=== PATIENT | male | born 1950 | race Caucasian/White ===

== ENCOUNTER 2016-07-28 10:51 | Inpatient (IN) | payer MEDICARE, OTHER ==
[~2016-07-28] VITALS: Ht 175.3 cm; Wt 77.6 kg
[~2016-07-28 10:51] MED LIST: ALTACE 5MG5 MG PO; ASPIRIN E.C. 8181 MG PO; ASPIRIN E.C.325 MG PO; CLOPIDOGREL PO; COREG 25MG25 MG/TAB PO; HARVONI PO; LASIX 20MG TABL20 MG PO; LIPITOR 40MG TA40 MG PO; NASONEX SPRAY; NEXIUM40 MG PO; NITROSTAT0.4 MG/TAB SL; ONE DAILY1 TA2 PO; PRAVACHOL 20MG20 MG PO; SIMETHICONE80 MG PO; ZANTAC 150MG T150 MG PO; ZOCOR 80MG80 MG PO
[2016-07-28 11:36] LABS: BASO # 0.1 (0.0-0.2); BASO % 0.6 % (0.0-2.0); EOS # 0.2 (0.0-0.7); EOS % 1.7 % (0-4.0); GRAN # 7.2 (1.4-6.5); GRAN % 80.5 % (42.2-75.2); LYMPH # 0.6 (1.2-3.4); LYMPH % 6.2 % (20.0-51.0); MEAN CELL VOLUME 92 fl (80.0-100.0); MEAN CORPUSCULAR HGB CONC 35 g/dl (33.0-37.0); MEAN PLATELET VOLUME 11.5 fl (7.4-10.4); MONO % 10.7 % (1.7-9.3); PLATELET COUNT 123 K/mm3 (130-400); RED BLOOD COUNT 3.47 M/mm3 (4.20-5.60); WHITE BLOOD COUNT 8.9 K/mm3 (4.8-10.8)
[2016-07-28 11:38] LABS: HEMATOCRIT 31.9 % (42.0-52.0); HEMOGLOBIN 11.1 g/dl (13.5-18.0); MEAN CORPUSCULAR HEMOGLOBIN 32 pg (27.0-31.0)
[2016-07-28 11:39] LABS: INR 1.4 (0.8-3.0); PROTHROMBIN TIME 15.1 SECONDS (9.7-12.8)
[2016-07-28 11:42] LABS: PARTIAL THROMBOPLASTIN TIME 29.6 SECONDS (26.0-37.0)
[2016-07-28 11:52] LABS: ADJUSTED CALCIUM 9.2 mg/dL (8.4-10.2); ALBUMIN 4.8 gm/dL (3.5-5.0); BILIRUBIN,TOTAL 1.6 mg/dL (0.0-1.0); CALCIUM 9.8 mg/dL (8.4-10.2); MAGNESIUM 2.8 mg/dL (1.6-2.3); TOTAL PROTEIN 9.6 gm/dL (6.4-8.2)
[2016-07-28 12:01] LABS: CREATININE, serum 4.7 mg/dL (0.66-1.25); PHOSPHOROUS 9.9 mg/dL (2.5-4.5); POTASSIUM 2.9 mmol/L (3.4-5.0)
[2016-07-28] MEDS ORDERED: NITRO-DUR0.4 MG/PAT TD (12:53)
[2016-07-28] MEDS ORDERED: DEMADEX100 MG PO (12:53)
[2016-07-28] MEDS ORDERED: diuretic PO (12:54)
[2016-07-28] MEDS ORDERED: ZAROXOLYN5 MG PO (12:55)
[2016-07-28 14:44] LABS: PH 5 (5-8); SQUAMOUS EPITHELIAL None Seen /hpf; URINE APPEARANCE Clear; URINE BACTERIA None Seen /hpf; URINE BILIRUBIN Negative (NEGATIVE); URINE BLOOD 2+ (NEGATIVE); URINE COLOR Yellow; URINE GLUCOSE Negative (NEGATIVE); URINE KETONE Negative (NEGATIVE); URINE UROBILINOGEN Negative (NEGATIVE)
[2016-07-28 15:34] VITALS: BP 90/58; PULSE 66; TEMP 97.4
[2016-07-28 15:37] VITALS: BP 90/58; PULSE 67; TEMP 97.4
[2016-07-28] MEDS ORDERED: CRESTOR20 MG PO (15:40)
[2016-07-28] MEDS ORDERED: GAS RELIEF80 MG PO (15:46)
[2016-07-28] MEDS ORDERED: MULTIPLE VITAMI1 CAP PO (15:47)
[2016-07-28] MEDS ORDERED: FLONASE NASAL S16 GM NS (15:48)
[2016-07-28] MEDS ORDERED: B-12 100 MCG PO (15:49)
[2016-07-28] MEDS ORDERED: ZYRTEC10MGSGL PO (15:49)
[2016-07-28] MEDS ORDERED: MILK OF MA400 MG/52 PO (15:56)
[2016-07-28] MEDS ORDERED: ALMACONE 360 M360 ML PO (15:56)
[2016-07-28] MEDS ORDERED: ZYLOPRIM 100MG100 MG PO (15:57)
[2016-07-28 20:54] VITALS: BP 101/51; PULSE 69; TEMP 98.2
[2016-07-29 01:05] VITALS: BP 105/52; PULSE 77; TEMP 98.2
[2016-07-29 04:24] VITALS: BP 100/48; PULSE 66; TEMP 98.3
[2016-07-29 05:25] LABS: MEAN CELL VOLUME 93 fl (80.0-100.0); MEAN CORPUSCULAR HGB CONC 35 g/dl (33.0-37.0); MEAN PLATELET VOLUME 11.4 fl (7.4-10.4); PLATELET COUNT 108 K/mm3 (130-400); RED BLOOD COUNT 3.43 M/mm3 (4.20-5.60); REDCELL DISTRIBUTION WIDTH-CV 13.9 % (11.5-14.5); WHITE BLOOD COUNT 6.8 K/mm3 (4.8-10.8)
[2016-07-29 05:26] LABS: HEMATOCRIT 31.8 % (42.0-52.0); MEAN CORPUSCULAR HEMOGLOBIN 32 pg (27.0-31.0)
[2016-07-29 05:39] LABS: ALBUMIN 4.6 gm/dL (3.5-5.0); CALCIUM 9.8 mg/dL (8.4-10.2); CREATININE, serum 3.17 mg/dL (0.66-1.25); POTASSIUM 3.6 mmol/L (3.4-5.0)
[2016-07-29 05:59] LABS: PHOSPHOROUS 5.9 mg/dL (2.5-4.5)
[2016-07-29 08:09] VITALS: BP 102/50; PULSE 66; TEMP 97.5
[2016-07-29 12:06] VITALS: BP 92/49; PULSE 89; TEMP 97.8
[2016-07-29 12:23] LABS: CREATININE, serum 2.98 mg/dL (0.66-1.25)
[2016-07-29 13:23] LABS: FRACTIONAL EXCRETION OF NA+ 1.8 %
[2016-07-29 16:34] VITALS: BP 106/56; PULSE 57; TEMP 97.9
[2016-07-29 20:47] VITALS: BP 99/56; PULSE 71; TEMP 99.5
[2016-07-29 23:25] LABS: HOURS RANDOM Hr (()); VOLUME RANDOM mL (())
[2016-07-30] VITALS (7 sets, daily range): BP systolic 98–115; BP diastolic 50–61; PULSE 64–77; TEMP 97.9–98.5
[2016-07-30 06:54] LABS: MEAN CELL VOLUME 95 fl (80.0-100.0); MEAN CORPUSCULAR HGB CONC 33 g/dl (33.0-37.0); MEAN PLATELET VOLUME 11.7 fl (7.4-10.4); PLATELET COUNT 111 K/mm3 (130-400); RED BLOOD COUNT 3.74 M/mm3 (4.20-5.60); REDCELL DISTRIBUTION WIDTH-CV 13.9 % (11.5-14.5); WHITE BLOOD COUNT 6.5 K/mm3 (4.8-10.8)
[2016-07-30 07:00] LABS: HEMATOCRIT 35.6 % (42.0-52.0); HEMOGLOBIN 11.9 g/dl (13.5-18.0); MEAN CORPUSCULAR HEMOGLOBIN 32 pg (27.0-31.0)
[2016-07-30 07:03] LABS: ALBUMIN 4.6 gm/dL (3.5-5.0); CALCIUM 10.5 mg/dL (8.4-10.2); CREATININE, serum 2.17 mg/dL (0.66-1.25); PHOSPHOROUS 4.3 mg/dL (2.5-4.5); POTASSIUM 3.5 mmol/L (3.4-5.0)
[2016-07-31 04:29] VITALS: BP 108/58; PULSE 71; TEMP 98.1
[2016-07-31 07:47] LABS: MEAN CELL VOLUME 96 fl (80.0-100.0); MEAN CORPUSCULAR HGB CONC 33 g/dl (33.0-37.0); MEAN PLATELET VOLUME 11.3 fl (7.4-10.4); PLATELET COUNT 110 K/mm3 (130-400); RED BLOOD COUNT 3.68 M/mm3 (4.20-5.60); REDCELL DISTRIBUTION WIDTH-CV 13.9 % (11.5-14.5)
[2016-07-31 07:51] LABS: HEMATOCRIT 35.4 % (42.0-52.0); HEMOGLOBIN 11.8 g/dl (13.5-18.0); MEAN CORPUSCULAR HEMOGLOBIN 32 pg (27.0-31.0)
[2016-07-31 08:59] LABS: ALBUMIN 4.4 gm/dL (3.5-5.0); CALCIUM 10.7 mg/dL (8.4-10.2); CREATININE, serum 1.86 mg/dL (0.66-1.25); PHOSPHOROUS 3.1 mg/dL (2.5-4.5); POTASSIUM 4.5 mmol/L (3.4-5.0)
[2016-07-31 09:00] VITALS: BP 104/62; PULSE 69; TEMP 97.8
[2016-07-31 12:58] LABS: ALBUMIN FRACTION 4.2 g/dL (2.6-4.5); ALBUMIN PERCENTAGE 49.2 % (48.7-61.8); ALPHA 1 FRACTION 0.3 g/dL (0.3-0.5); ALPHA 1 PERCENTAGE 3.3 % (3.4-8.3); ALPHA 2 FRACTION 0.9 g/dL (0.6-1.2); ALPHA 2 PERCENTAGE 10.3 % (8.4-17.5); BETA 1 FRACTION 0.5 g/dL (0.4-0.6); BETA 1 PERCENTAGE 5.7 % (5.4-8.9); BETA 2 FRACTION 0.5 g/dL (0.2-0.5); BETA 2 PERCENTAGE 5.3 % (3.8-7.7); GAMMA FRACTION 2.2 g/dL (0.4-1.7); GAMMA PERCENTAGE 26.2 % (8.1-23.0); SERUM PROTEIN TOTAL 8.5 g/dL (6.0-7.6)
[2016-07-31 16:56] LABS: CK total - for Isoenzymes 69 U/L (52 - 336)
[2016-07-31 19:11] LABS: KAPPA FREE LIGHT CHAIN-SERUM 19.4 mg/dL (()); KAPPA LAMBDA RATIO 3.31 (())
== END 2016-07-31 13:01 | disposition home or self-care (01) | DRG 682 ==
LOC: COL.ER 10:51 → MEDICAL 12:39
PROVIDERS: Emergency Medicine; Internal Medicine Nephrology
DX: N17.9 Acute kidney failure, unspecified (principal); I50.23 Acute on chronic systolic (congestive) heart failure; E87.1 Hypo-osmolality and hyponatremia; E46 Unspecified protein-calorie malnutrition; E87.4 Mixed disorder of acid-base balance; I50.22 Chronic systolic (congestive) heart failure; E87.6 Hypokalemia; D63.1 Anemia in chronic kidney disease; Z95.1 Presence of aortocoronary bypass graft; I25.5 Ischemic cardiomyopathy; Z95.0 Presence of cardiac pacemaker; I25.10 Atherosclerotic heart disease of native coronary artery without angina pectoris; B18.2 Chronic viral hepatitis C; Z95.5 Presence of coronary angioplasty implant and graft; E83.39 Other disorders of phosphorus metabolism; N18.9 Chronic kidney disease, unspecified
CPT/HCPCS: J1644; J3480; J7030; J7040

== ENCOUNTER 2016-08-28 10:33 | Day surgery (SDC) | payer MEDICARE, OTHER ==
[~2016-08-28] VITALS: Ht 175.3 cm; Wt 82.7 kg
[2016-08-28] VITALS (11 sets, daily range): BP systolic 81–101; BP diastolic 58–85; PULSE 65–100; TEMP 97.1
[~2016-08-28 10:33] MED LIST changes: +ALMACONE 360 M360 ML PO; +B-12 100 MCG PO; +CRESTOR20 MG PO; +DEMADEX100 MG PO; +FLONASE NASAL S16 GM NS; +GAS RELIEF80 MG PO; +MILK OF MA400 MG/52 PO; +MULTIPLE VITAMI1 CAP PO; +NITRO-DUR0.4 MG/PAT TD; +ZAROXOLYN5 MG PO; +ZYLOPRIM 100MG100 MG PO; +ZYRTEC10MGSGL PO; +diuretic PO
[2016-08-28 11:18] LABS: MEAN CELL VOLUME 101 fl (80.0-100.0); MEAN CORPUSCULAR HGB CONC 33 g/dl (33.0-37.0); MEAN PLATELET VOLUME 9.8 fl (7.4-10.4); PLATELET COUNT 97 K/mm3 (130-400); RED BLOOD COUNT 2.85 M/mm3 (4.20-5.60); REDCELL DISTRIBUTION WIDTH-CV 17.2 % (11.5-14.5); WHITE BLOOD COUNT 6.7 K/mm3 (4.8-10.8)
[2016-08-28 11:22] LABS: INR 1.6 (0.8-3.0); PROTHROMBIN TIME 18.2 SECONDS (9.7-12.8)
[2016-08-28 11:23] LABS: HEMATOCRIT 28.9 % (42.0-52.0); HEMOGLOBIN 9.5 g/dl (13.5-18.0); MEAN CORPUSCULAR HEMOGLOBIN 33 pg (27.0-31.0)
[2016-08-28] MEDS ORDERED: MULTI VITAMINS1 TAB PO (11:26)
[2016-08-28 11:27] LABS: CALCIUM 9.3 mg/dL (8.4-10.2); CREATININE, serum 1.6 mg/dL (0.66-1.25); POTASSIUM 4.3 mmol/L (3.4-5.0)
[2016-08-28 12:39] LABS: ALBUMIN 4.2 gm/dL (3.5-5.0); BILIRUBIN,DIRECT 0.5 mg/dL (0.0-0.4); BILIRUBIN,TOTAL 1.1 mg/dL (0.0-1.0); TOTAL PROTEIN 8.3 gm/dL (6.4-8.2)
[2016-08-28] MEDS ORDERED: ELIQUIS 2.5 PO (18:15)
== END 2016-08-28 20:00 | disposition home or self-care (01) ==
LOC: EUO 10:33 → COL.RAD 10:45 → EUO 20:00
PROVIDERS: Internal Medicine Cardiovascular Disease
DX: I42.9 Cardiomyopathy, unspecified (principal); I65.23 Occlusion and stenosis of bilateral carotid arteries; I25.810 Atherosclerosis of coronary artery bypass graft(s) without angina pectoris; I25.10 Atherosclerotic heart disease of native coronary artery without angina pectoris; I36.1 Nonrheumatic tricuspid (valve) insufficiency; I34.0 Nonrheumatic mitral (valve) insufficiency; I51.7 Cardiomegaly; I27.2 Other secondary pulmonary hypertension; I10 Essential (primary) hypertension; Z95.1 Presence of aortocoronary bypass graft; E78.5 Hyperlipidemia, unspecified; I48.91 Unspecified atrial fibrillation
CPT/HCPCS: C1760; C1769; J2250; J3010; Q9967

== ENCOUNTER 2016-08-31 07:46 | Inpatient (IN) | payer MEDICARE, OTHER ==
[~2016-08-31] VITALS: Ht 175.3 cm; Wt 85.5 kg
[~2016-08-31 07:46] MED LIST changes: +ELIQUIS 2.5 PO; +MULTI VITAMINS1 TAB PO
[2016-08-31 08:06] VITALS: BP 115/77; PULSE 97; TEMP 97.8
[2016-08-31 08:49] LABS: MEAN CELL VOLUME 104 fl (80.0-100.0); MEAN CORPUSCULAR HGB CONC 32 g/dl (33.0-37.0); MEAN PLATELET VOLUME 10.7 fl (7.4-10.4); PLATELET COUNT 113 K/mm3 (130-400); RED BLOOD COUNT 2.76 M/mm3 (4.20-5.60); REDCELL DISTRIBUTION WIDTH-CV 17.7 % (11.5-14.5); WHITE BLOOD COUNT 6.3 K/mm3 (4.8-10.8)
[2016-08-31 08:51] LABS: ADJUSTED CALCIUM 9.2 mg/dL (8.4-10.2); BILIRUBIN,TOTAL 1.3 mg/dL (0.0-1.0); CALCIUM 9.2 mg/dL (8.4-10.2); CREATININE, serum 1.77 mg/dL (0.66-1.25); MAGNESIUM 2.6 mg/dL (1.6-2.3); POTASSIUM 4.2 mmol/L (3.4-5.0)
[2016-08-31 08:52] LABS: HEMATOCRIT 28.6 % (42.0-52.0); HEMOGLOBIN 9.2 g/dl (13.5-18.0); MEAN CORPUSCULAR HEMOGLOBIN 33 pg (27.0-31.0)
[2016-08-31 09:05] LABS: INR 2.5 (0.8-3.0); PROTHROMBIN TIME 28.3 SECONDS (9.7-12.8)
[2016-08-31] MEDS ORDERED: PLAVIX 75MG TAB75 MG PO (10:58)
[2016-08-31 12:03] VITALS: BP 89/59; PULSE 71; TEMP 97.9
[2016-08-31 16:35] VITALS: BP 83/49; PULSE 96; TEMP 98
[2016-08-31 19:38] VITALS: BP 92/66; PULSE 83; TEMP 98
[2016-09-01] VITALS (7 sets, daily range): BP systolic 83–109; BP diastolic 41–69; PULSE 62–81; TEMP 98.1–98.7
[2016-09-01 12:40] LABS: CALCIUM 8.9 mg/dL (8.4-10.2); CREATININE, serum 1.57 mg/dL (0.66-1.25); POTASSIUM 4.5 mmol/L (3.4-5.0)
[2016-09-02] VITALS (8 sets, daily range): BP systolic 89–105; BP diastolic 51–65; PULSE 73–81; TEMP 98.3
[2016-09-02 07:54] LABS: INR 2.6 (0.8-3.0); PROTHROMBIN TIME 30.1 SECONDS (9.7-12.8)
[2016-09-02 08:17] LABS: POTASSIUM 3.9 mmol/L (3.4-5.0)
[2016-09-02 08:47] LABS: THYROID STIMULATING HORMONE 2.15 uIU/mL (0.465-4.680)
== END 2016-09-02 13:35 | disposition home or self-care (01) | DRG 310 ==
LOC: MEDICAL 07:46
PROVIDERS: Internal Medicine Cardiovascular Disease
PROC: 5A2204Z Restoration of Cardiac Rhythm, Single (ICD-10-PCS; principal; 2016-09-02)
DX: I48.0 Paroxysmal atrial fibrillation (principal); I25.5 Ischemic cardiomyopathy; I25.10 Atherosclerotic heart disease of native coronary artery without angina pectoris; Z95.1 Presence of aortocoronary bypass graft; Z95.5 Presence of coronary angioplasty implant and graft; Z95.810 Presence of automatic (implantable) cardiac defibrillator
CPT/HCPCS: C1760; C1769; J2250; J3010; J7030; Q9967

== ENCOUNTER 2016-12-16 12:36 | Inpatient (IN) | payer MEDICARE, OTHER ==
[~2016-12-16] VITALS: Ht 175.3 cm; Wt 81.5 kg
[2016-12-16] VITALS (455 sets, daily range): BP systolic 84–104; BP diastolic 50–64; PULSE 74–79; TEMP 97.1–97.8; O2SAT 83–100
[~2016-12-16 12:36] MED LIST changes: +PLAVIX 75MG TAB75 MG PO
[2016-12-16 12:55] LABS: BASO % 0.4 % (0.0-2.0); EOS # 0.1 (0.0-0.7); EOS % 1.5 % (0-4.0); GRAN # 5.4 (1.4-6.5); GRAN % 74.8 % (42.2-75.2); LYMPH # 0.6 (1.2-3.4); LYMPH % 8.4 % (20.0-51.0); MEAN CELL VOLUME 100 fl (80.0-100.0); MEAN CORPUSCULAR HGB CONC 33 g/dl (33.0-37.0); MEAN PLATELET VOLUME 10.6 fl (7.4-10.4); MONO # 1.1 (0.1-0.6); MONO % 14.6 % (1.7-9.3); PLATELET COUNT 134 K/mm3 (130-400); RED BLOOD COUNT 2.38 M/mm3 (4.20-5.60); REDCELL DISTRIBUTION WIDTH-CV 17.6 % (11.5-14.5); WHITE BLOOD COUNT 7.3 K/mm3 (4.8-10.8)
[2016-12-16 12:56] LABS: HEMATOCRIT 23.8 % (42.0-52.0); HEMOGLOBIN 7.9 g/dl (13.5-18.0); MEAN CORPUSCULAR HEMOGLOBIN 33 pg (27.0-31.0)
[2016-12-16 13:16] LABS: ADJUSTED CALCIUM 8.5 mg/dL (8.4-10.2); ALBUMIN 3.7 gm/dL (3.5-5.0); BILIRUBIN,TOTAL 1.1 mg/dL (0.0-1.0); CALCIUM 8.3 mg/dL (8.4-10.2); CREATININE, serum 2.21 mg/dL (0.66-1.25); MAGNESIUM 2.2 mg/dL (1.6-2.3); TOTAL PROTEIN 7.5 gm/dL (6.4-8.2)
[2016-12-16 13:32] LABS: TROPONIN-I 0.099 ng/mL (0.000-0.034)
[2016-12-16 13:42] LABS: INR 2.7 (0.8-3.0); PROTHROMBIN TIME 30.9 SECONDS (9.7-12.8)
[2016-12-16] MEDS ORDERED: ZAROXOLYN5 MG PO (13:47)
[2016-12-16] MEDS ORDERED: NITROSTAT0.4 MG/TAB SL (13:52)
[2016-12-16] MEDS ORDERED: BETAPACE 80MG80 MG PO (13:54)
[2016-12-16] MEDS ORDERED: COREG12.5 MG PO (13:56)
[2016-12-16] MEDS ORDERED: FLOVENT DI50 MCG/Act IH (13:58)
[2016-12-16] MEDS ORDERED: FLONASE NASAL S16 GM NS (16:22)
[2016-12-17] VITALS (587 sets, daily range): BP systolic 91–106; BP diastolic 56–64; PULSE 74–89; TEMP 97–98; O2SAT 82–100
[2016-12-17 05:34] LABS: BASO % 0.4 % (0.0-2.0); EOS # 0.2 (0.0-0.7); EOS % 2.4 % (0-4.0); GRAN % 79.7 % (42.2-75.2); LYMPH # 0.5 (1.2-3.4); LYMPH % 6.9 % (20.0-51.0); MEAN CELL VOLUME 98 fl (80.0-100.0); MEAN CORPUSCULAR HGB CONC 33 g/dl (33.0-37.0); MONO # 0.8 (0.1-0.6); MONO % 10.1 % (1.7-9.3); PLATELET COUNT 120 K/mm3 (130-400); RED BLOOD COUNT 2.93 M/mm3 (4.20-5.60); WHITE BLOOD COUNT 7.5 K/mm3 (4.8-10.8)
[2016-12-17 05:36] LABS: HEMATOCRIT 28.7 % (42.0-52.0); HEMOGLOBIN 9.4 g/dl (13.5-18.0); MEAN CORPUSCULAR HEMOGLOBIN 32 pg (27.0-31.0)
[2016-12-17 05:44] LABS: BLOOD UREA NITROGEN 55 mg/dL (9-20); CALCIUM 8.4 mg/dL (8.4-10.2); CREATININE, serum 2.15 mg/dL (0.66-1.25); GLUCOSE 124 mg/dL (74-106); SODIUM 133 mmol/L (137-145)
[2016-12-17 05:56] LABS: POTASSIUM 2.6 mmol/L (3.4-5.0)
[2016-12-17 05:57] LABS: CARBON DIOXIDE 42 mmol/L (22-30); CHLORIDE 80 mmol/L (98-107)
[2016-12-18 04:31] VITALS: BP 93/57; PULSE 77; TEMP 98.2
[2016-12-18 07:48] VITALS: BP 85/54; PULSE 76; TEMP 98.5
[2016-12-18 13:25] VITALS: BP 87/52; PULSE 75; TEMP 98.2
[2016-12-18 14:16] LABS: BASO % 0.5 % (0.0-2.0); EOS # 0.1 (0.0-0.7); EOS % 1.6 % (0-4.0); GRAN # 5.9 (1.4-6.5); GRAN % 76.3 % (42.2-75.2); LYMPH # 0.8 (1.2-3.4); LYMPH % 9.8 % (20.0-51.0); MEAN CELL VOLUME 101 fl (80.0-100.0); MEAN CORPUSCULAR HGB CONC 32 g/dl (33.0-37.0); MEAN PLATELET VOLUME 10.2 fl (7.4-10.4); MONO # 0.9 (0.1-0.6); MONO % 11.1 % (1.7-9.3); PLATELET COUNT 156 K/mm3 (130-400); RED BLOOD COUNT 3.06 M/mm3 (4.20-5.60); REDCELL DISTRIBUTION WIDTH-CV 21.1 % (11.5-14.5); WHITE BLOOD COUNT 7.7 K/mm3 (4.8-10.8)
[2016-12-18 14:20] LABS: CREATININE, serum 2.17 mg/dL (0.66-1.25); POTASSIUM 4.1 mmol/L (3.4-5.0)
[2016-12-18 14:21] LABS: HEMATOCRIT 30.9 % (42.0-52.0); MEAN CORPUSCULAR HEMOGLOBIN 33 pg (27.0-31.0)
[2016-12-18 16:16] VITALS: BP 117/57; PULSE 92; TEMP 98.1
[2016-12-18 17:17] VITALS: BP 89/59; PULSE 74; TEMP 98.2
[2016-12-18 18:10] LABS: PH 5 (5-8); SQUAMOUS EPITHELIAL 0-2 /hpf; URINE APPEARANCE Clear; URINE BACTERIA None Seen /hpf; URINE BILIRUBIN Negative (NEGATIVE); URINE BLOOD 2+ (NEGATIVE); URINE COLOR Yellow; URINE GLUCOSE Negative (NEGATIVE); URINE KETONE Negative (NEGATIVE); URINE UROBILINOGEN >=4.0 mg/dL (NEGATIVE); URINE WBC 0-2 /hpf
[2016-12-18 19:40] VITALS: BP 93/58; PULSE 77; TEMP 98
[2016-12-19] VITALS (8 sets, daily range): BP systolic 83–112; BP diastolic 48–63; PULSE 75–77; TEMP 97.6–99.1
[2016-12-19 06:57] LABS: INR 4.8 (0.8-3.0)
[2016-12-19 07:04] LABS: POTASSIUM 3.9 mmol/L (3.4-5.0)
[2016-12-19 07:05] LABS: PROTHROMBIN TIME 56.3 SECONDS (9.7-12.8)
[2016-12-19 09:35] LABS: BASO % 0.4 % (0.0-2.0); EOS % 0.1 % (0-4.0); GRAN # 7.3 (1.4-6.5); GRAN % 80.3 % (42.2-75.2); LYMPH # 0.7 (1.2-3.4); LYMPH % 7.9 % (20.0-51.0); MEAN CELL VOLUME 102 fl (80.0-100.0); MEAN CORPUSCULAR HGB CONC 33 g/dl (33.0-37.0); MEAN PLATELET VOLUME 10.8 fl (7.4-10.4); MONO % 10.7 % (1.7-9.3); PLATELET COUNT 167 K/mm3 (130-400); RED BLOOD COUNT 2.92 M/mm3 (4.20-5.60); REDCELL DISTRIBUTION WIDTH-CV 20.8 % (11.5-14.5); WHITE BLOOD COUNT 9.1 K/mm3 (4.8-10.8)
[2016-12-19 09:36] LABS: HEMATOCRIT 29.8 % (42.0-52.0); HEMOGLOBIN 9.7 g/dl (13.5-18.0); MEAN CORPUSCULAR HEMOGLOBIN 33 pg (27.0-31.0)
[2016-12-19 09:46] LABS: CREATININE, serum 2.17 mg/dL (0.66-1.25)
[2016-12-19 11:37] LABS: BILIRUBIN,TOTAL 3.2 mg/dL (0.0-1.0); TOTAL PROTEIN 6.6 gm/dL (6.4-8.2)
[2016-12-19 11:38] LABS: BILIRUBIN,DIRECT 1.5 mg/dL (0.0-0.4)
[2016-12-20 03:31] VITALS: BP 94/50; PULSE 74; TEMP 98.8
[2016-12-20 07:06] LABS: INR 2.8 (0.8-3.0); PROTHROMBIN TIME 31.5 SECONDS (9.7-12.8)
[2016-12-20 07:08] LABS: BASO % 0.2 % (0.0-2.0); EOS # 0.1 (0.0-0.7); EOS % 0.9 % (0-4.0); GRAN # 7.2 (1.4-6.5); LYMPH # 0.5 (1.2-3.4); LYMPH % 5.9 % (20.0-51.0); MEAN CELL VOLUME 102 fl (80.0-100.0); MEAN CORPUSCULAR HGB CONC 32 g/dl (33.0-37.0); MEAN PLATELET VOLUME 10.2 fl (7.4-10.4); MONO # 0.7 (0.1-0.6); MONO % 8.4 % (1.7-9.3); PLATELET COUNT 164 K/mm3 (130-400); RED BLOOD COUNT 2.87 M/mm3 (4.20-5.60); REDCELL DISTRIBUTION WIDTH-CV 20.8 % (11.5-14.5); WHITE BLOOD COUNT 8.6 K/mm3 (4.8-10.8)
[2016-12-20 07:23] LABS: HEMATOCRIT 29.2 % (42.0-52.0); HEMOGLOBIN 9.2 g/dl (13.5-18.0); MEAN CORPUSCULAR HEMOGLOBIN 32 pg (27.0-31.0)
[2016-12-20 08:41] LABS: ADJUSTED CALCIUM 8.8 mg/dL (8.4-10.2); ALBUMIN 2.9 gm/dL (3.5-5.0); BILIRUBIN,TOTAL 2.2 mg/dL (0.0-1.0); CALCIUM 7.9 mg/dL (8.4-10.2); CREATININE, serum 1.93 mg/dL (0.66-1.25); POTASSIUM 3.2 mmol/L (3.4-5.0); TOTAL PROTEIN 6.5 gm/dL (6.4-8.2)
[2016-12-20 08:47] VITALS: BP 99/60; PULSE 74; TEMP 97.4
[2016-12-20 11:43] VITALS: BP 82/45; PULSE 75; TEMP 98.2
[2016-12-20 15:47] VITALS: BP 91/52; PULSE 86; TEMP 97.4
[2016-12-20 20:07] VITALS: BP 95/54; PULSE 75; TEMP 98.4
[2016-12-20 23:16] VITALS: BP 95/50; PULSE 75; TEMP 98.7
[2016-12-21 03:24] VITALS: BP 87/48; PULSE 80; TEMP 98.5
[2016-12-21 07:01] LABS: INR 1.9 (0.8-3.0)
[2016-12-21 07:03] LABS: HEMATOCRIT 29.4 % (42.0-52.0); HEMOGLOBIN 9.3 g/dl (13.5-18.0); MEAN CELL VOLUME 103 fl (80.0-100.0); MEAN CORPUSCULAR HEMOGLOBIN 33 pg (27.0-31.0); MEAN CORPUSCULAR HGB CONC 32 g/dl (33.0-37.0); MEAN PLATELET VOLUME 10.2 fl (7.4-10.4); PLATELET COUNT 164 K/mm3 (130-400); RED BLOOD COUNT 2.85 M/mm3 (4.20-5.60); REDCELL DISTRIBUTION WIDTH-CV 20.5 % (11.5-14.5); WHITE BLOOD COUNT 7.7 K/mm3 (4.8-10.8)
[2016-12-21 07:16] LABS: ADJUSTED CALCIUM 8.6 mg/dL (8.4-10.2); ALBUMIN 3.3 gm/dL (3.5-5.0); CREATININE, serum 1.56 mg/dL (0.66-1.25); POTASSIUM 3.4 mmol/L (3.4-5.0); TOTAL PROTEIN 6.8 gm/dL (6.4-8.2)
[2016-12-21 07:45] LABS: BILIRUBIN,DIRECT 0.7 mg/dL (0.0-0.4)
[2016-12-21 08:43] VITALS: BP 95/54; PULSE 75
[2016-12-21 11:57] VITALS: BP 98/53; PULSE 74; TEMP 98.2
[2016-12-21] MEDS ORDERED: PROTONIX 40MG T40 MG PO (14:28)
[2016-12-21] MEDS ORDERED: COREG 3.123.125 MG/T PO (14:30)
[2016-12-21] MEDS ORDERED: PACERONE400 MG PO (14:31)
[2016-12-21] MEDS ORDERED: DEMADEX 20MG20 M1 PO (14:34)
== END 2016-12-21 17:43 | disposition home or self-care (01) | DRG 315 ==
LOC: COL.ER 12:36 → ICU 13:06 → MEDICAL 13:06
PROVIDERS: Family Medicine; Internal Medicine; Internal Medicine Cardiovascular Disease; Internal Medicine Gastroenterology
PROC: 0DB68ZX Excision of Stomach, Via Natural or Artificial Opening Endoscopic, Diagnostic (ICD-10-PCS; 2016-12-21)
PROC: 4B02XTZ Measurement of Cardiac Defibrillator, External Approach (ICD-10-PCS; principal; 2016-12-21 07:30)
PROC: 0DJD8ZZ Inspection of Lower Intestinal Tract, Via Natural or Artificial Opening Endoscopic (ICD-10-PCS; 2016-12-21 07:30)
DX: T82.198A Other mechanical complication of other cardiac electronic device, initial encounter (principal); I47.2 Ventricular tachycardia; I13.0 Hypertensive heart and chronic kidney disease with heart failure and stage 1 through stage 4 chronic kidney disease, or unspecified chronic kidney disease; I50.22 Chronic systolic (congestive) heart failure; N17.9 Acute kidney failure, unspecified; D62 Acute posthemorrhagic anemia; E87.1 Hypo-osmolality and hyponatremia; K29.30 Chronic superficial gastritis without bleeding; K44.9 Diaphragmatic hernia without obstruction or gangrene; I25.5 Ischemic cardiomyopathy; E87.6 Hypokalemia; N18.3 Chronic kidney disease, stage 3 (moderate); I48.0 Paroxysmal atrial fibrillation; Z79.01 Long term (current) use of anticoagulants; I25.10 Atherosclerotic heart disease of native coronary artery without angina pectoris; Z95.1 Presence of aortocoronary bypass graft; B18.2 Chronic viral hepatitis C; Z85.038 Personal history of other malignant neoplasm of large intestine; Z95.5 Presence of coronary angioplasty implant and graft; I08.0 Rheumatic disorders of both mitral and aortic valves; K64.0 First degree hemorrhoids
CPT/HCPCS: 99232-AI; 99233-AI; 99239; C1751; J0282; J1644; J2250; J2405; J2704; J3010; J3475; J3480; J7030; J7040; J7050; J7060; P9016

== ENCOUNTER 2017-01-08 12:01 | Emergency (ER) | payer MEDICARE, OTHER ==
[~2017-01-08] VITALS: Ht 175.3 cm; Wt 90.9 kg
[~2017-01-08 12:01] MED LIST changes: +BETAPACE 80MG80 MG PO; +COREG 3.123.125 MG/T PO; +COREG12.5 MG PO; +DEMADEX 20MG20 M1 PO; +FLOVENT DI50 MCG/Act IH; +PACERONE400 MG PO; +PROTONIX 40MG T40 MG PO
[2017-01-08 12:05] VITALS: TEMP 98.2
[2017-01-08 12:58] LABS: BASO % 0.4 % (0.0-2.0); EOS # 0.1 (0.0-0.7); EOS % 1.1 % (0-4.0); GRAN # 6.2 (1.4-6.5); GRAN % 77.9 % (42.2-75.2); LYMPH # 0.5 (1.2-3.4); LYMPH % 6.6 % (20.0-51.0); MEAN CELL VOLUME 102 fl (80.0-100.0); MEAN CORPUSCULAR HGB CONC 32 g/dl (33.0-37.0); MEAN PLATELET VOLUME 10.3 fl (7.4-10.4); MONO # 1.1 (0.1-0.6); MONO % 13.5 % (1.7-9.3); PLATELET COUNT 167 K/mm3 (130-400); RED BLOOD COUNT 2.85 M/mm3 (4.20-5.60)
[2017-01-08 13:02] LABS: HEMOGLOBIN 9.2 g/dl (13.5-18.0); MEAN CORPUSCULAR HEMOGLOBIN 32 pg (27.0-31.0)
[2017-01-08 13:07] LABS: ADJUSTED CALCIUM 8.8 mg/dL (8.4-10.2); ALBUMIN 3.7 gm/dL (3.5-5.0); BILIRUBIN,TOTAL 1.9 mg/dL (0.0-1.0); CALCIUM 8.6 mg/dL (8.4-10.2); CREATININE, serum 2.09 mg/dL (0.66-1.25); POTASSIUM 3.9 mmol/L (3.4-5.0); TOTAL PROTEIN 8.1 gm/dL (6.4-8.2)
[2017-01-08] MEDS ORDERED: DEMADEX100 MG PO (13:14)
[2017-01-08 13:18] LABS: TROPONIN-I 0.031 ng/mL (0.000-0.034)
[2017-01-08 13:26] LABS: HYALINE CAST >12 /lpf; PH 5 (5-8); SQUAMOUS EPITHELIAL 0-2 /hpf; URINE APPEARANCE Clear; URINE BACTERIA None Seen /hpf; URINE BILIRUBIN Negative (NEGATIVE); URINE BLOOD Negative (NEGATIVE); URINE COLOR Yellow; URINE GLUCOSE Negative (NEGATIVE); URINE KETONE Negative (NEGATIVE); URINE RBC 0-2 /hpf; URINE UROBILINOGEN Negative (NEGATIVE); URINE WBC 0-2 /hpf
[2017-01-08] MEDS ORDERED: ZAROXOLYN 2.52.5 MG PO (13:34)
[2017-01-08 13:52] VITALS: BP 121/72; PULSE 75
== END 2017-01-08 13:55 | disposition home or self-care (01) ==
LOC: COL.ER 12:01
PROVIDERS: Emergency Medicine
DX: R60.9 Edema, unspecified (principal); I42.9 Cardiomyopathy, unspecified; I11.0 Hypertensive heart disease with heart failure; I50.9 Heart failure, unspecified; I25.10 Atherosclerotic heart disease of native coronary artery without angina pectoris; I25.2 Old myocardial infarction; E78.5 Hyperlipidemia, unspecified; J45.909 Unspecified asthma, uncomplicated; B19.20 Unspecified viral hepatitis C without hepatic coma; M10.9 Gout, unspecified; Z79.82 Long term (current) use of aspirin; Z79.02 Long term (current) use of antithrombotics/antiplatelets; Z95.1 Presence of aortocoronary bypass graft; Z95.5 Presence of coronary angioplasty implant and graft; Z95.9 Presence of cardiac and vascular implant and graft, unspecified

== ENCOUNTER 2017-01-13 08:22 | Inpatient (IN) | payer MEDICARE, OTHER ==
[2017-01-13] VITALS (711 sets, daily range): BP systolic 104–127; BP diastolic 58–76; PULSE 72–82; TEMP 98.1–99.1; O2SAT 80–100
[~2017-01-13] VITALS: Ht 175.3 cm; Wt 78.3 kg
[~2017-01-13 08:22] MED LIST changes: +ZAROXOLYN 2.52.5 MG PO
[2017-01-13 10:13] LABS: BASO % 0.5 % (0.0-2.0); EOS # 0.2 (0.0-0.7); EOS % 1.9 % (0-4.0); GRAN # 6.2 (1.4-6.5); LYMPH # 0.7 (1.2-3.4); LYMPH % 8.5 % (20.0-51.0); MEAN CELL VOLUME 98 fl (80.0-100.0); MEAN CORPUSCULAR HGB CONC 33 g/dl (33.0-37.0); MEAN PLATELET VOLUME 10.2 fl (7.4-10.4); MONO # 1.2 (0.1-0.6); MONO % 14.5 % (1.7-9.3); PLATELET COUNT 279 K/mm3 (130-400); RED BLOOD COUNT 3.41 M/mm3 (4.20-5.60); WHITE BLOOD COUNT 8.4 K/mm3 (4.8-10.8)
[2017-01-13 10:14] LABS: HEMATOCRIT 33.3 % (42.0-52.0); HEMOGLOBIN 10.9 g/dl (13.5-18.0); MEAN CORPUSCULAR HEMOGLOBIN 32 pg (27.0-31.0)
[2017-01-13 10:25] LABS: ADJUSTED CALCIUM 9.2 mg/dL (8.4-10.2); ALANINE AMINOTRANSFERASE 28 U/L (21-72); ALBUMIN 3.9 gm/dL (3.5-5.0); ALKALINE PHOSPHATASE 117 U/L (50-136); BILIRUBIN,TOTAL 2.1 mg/dL (0.0-1.0); BLOOD UREA NITROGEN 35 mg/dL (9-20); CALCIUM 9.1 mg/dL (8.4-10.2); CREATININE, serum 1.81 mg/dL (0.66-1.25); GLUCOSE 202 mg/dL (74-106); SODIUM 130 mmol/L (137-145); TOTAL PROTEIN 8.5 gm/dL (6.4-8.2)
[2017-01-13 10:29] LABS: CHLORIDE 75 mmol/L (98-107); POTASSIUM 2.5 mmol/L (3.4-5.0)
[2017-01-13 10:33] LABS: CARBON DIOXIDE 40 mmol/L (22-30)
[2017-01-13 10:39] LABS: TROPONIN-I 0.055 ng/mL (0.000-0.034)
[2017-01-13 10:52] LABS: INR 1.6 (0.8-3.0)
[2017-01-13 10:55] LABS: PARTIAL THROMBOPLASTIN TIME 32.7 SECONDS (26.0-37.0)
[2017-01-13] MEDS ORDERED: K-DUR20 MEQ PO (13:55)
[2017-01-13 20:49] LABS: CALCIUM 8.7 mg/dL (8.4-10.2); CREATININE, serum 1.52 mg/dL (0.66-1.25); POTASSIUM 3.6 mmol/L (3.4-5.0)
[2017-01-14] VITALS (584 sets, daily range): BP systolic 100–126; BP diastolic 58–73; PULSE 74–103; TEMP 97.2–98.6; O2SAT 75–100
[2017-01-14 06:19] LABS: CALCIUM 9.1 mg/dL (8.4-10.2); CREATININE, serum 1.61 mg/dL (0.66-1.25)
[2017-01-15 00:53] VITALS: BP 118/66; PULSE 78; TEMP 98.5
[2017-01-15 01:04] VITALS: BP 98/55; PULSE 70; TEMP 98.4
[2017-01-15 03:42] VITALS: BP 103/54; PULSE 75; TEMP 98.2
[2017-01-15 07:43] VITALS: BP 102/53; PULSE 75; TEMP 98
[2017-01-15 07:44] LABS: CREATININE, serum 1.86 mg/dL (0.66-1.25); MAGNESIUM 2.6 mg/dL (1.6-2.3)
[2017-01-15 11:31] VITALS: BP 105/58; PULSE 70; TEMP 98.3
[2017-01-15] MEDS ORDERED: CORDARONE200 MG/TAB PO (13:47)
[2017-01-15] MEDS ORDERED: ALDACTONE 25MG25 M1 PO (13:49)
[2017-01-15] MEDS ORDERED: DEMADEX100 MG PO (14:20)
[2017-01-15 15:13] VITALS: BP 104/58; PULSE 72; TEMP 97.8
== END 2017-01-15 15:37 | disposition home or self-care (01) | DRG 309 ==
LOC: COL.ER 08:22 → ICU 09:36 → MEDICAL 01-14 12:11
PROVIDERS: Family Medicine; Internal Medicine
PROC: 02HV33Z Insertion of Infusion Device into Superior Vena Cava, Percutaneous Approach (ICD-10-PCS; principal; 2017-01-13)
DX: I47.2 Ventricular tachycardia (principal); I42.9 Cardiomyopathy, unspecified; E87.6 Hypokalemia; N18.9 Chronic kidney disease, unspecified; Z95.1 Presence of aortocoronary bypass graft
CPT/HCPCS: 99223-AI; 99232-AI; 99239; C1751; J0282; J1644; J2405; J3475; J3480; J7060

== ENCOUNTER 2017-01-28 11:58 | Observation (INO) | payer MEDICARE, OTHER ==
[~2017-01-28] VITALS: Ht 175.3 cm; Wt 83.9 kg
[~2017-01-28 11:58] MED LIST changes: +ALDACTONE 25MG25 M1 PO; +CORDARONE200 MG/TAB PO; +K-DUR20 MEQ PO
[2017-01-28 12:51] LABS: BASO % 0.5 % (0.0-2.0); EOS # 0.2 (0.0-0.7); EOS % 2.4 % (0-4.0); GRAN # 6.1 (1.4-6.5); GRAN % 76.3 % (42.2-75.2); HEMATOCRIT 30.3 % (42.0-52.0); HEMOGLOBIN 9.7 g/dl (13.5-18.0); LYMPH % 8.3 % (20.0-51.0); MEAN CELL VOLUME 98 fl (80.0-100.0); MEAN CORPUSCULAR HEMOGLOBIN 31 pg (27.0-31.0); MEAN CORPUSCULAR HGB CONC 32 g/dl (33.0-37.0); MEAN PLATELET VOLUME 9.5 fl (7.4-10.4); PLATELET COUNT 188 K/mm3 (130-400); RED BLOOD COUNT 3.08 M/mm3 (4.20-5.60); REDCELL DISTRIBUTION WIDTH-CV 17.9 % (11.5-14.5)
[2017-01-28 12:52] LABS: LYMPH # 0.7 (1.2-3.4)
[2017-01-28 13:04] LABS: ADJUSTED CALCIUM 8.8 mg/dL (8.4-10.2); ALBUMIN 3.9 gm/dL (3.5-5.0); BILIRUBIN,TOTAL 1.3 mg/dL (0.0-1.0); CALCIUM 8.7 mg/dL (8.4-10.2); CREATININE, serum 1.29 mg/dL (0.66-1.25); MAGNESIUM 1.9 mg/dL (1.6-2.3); TOTAL PROTEIN 8.6 gm/dL (6.4-8.2)
[2017-01-28 13:06] LABS: INR 1.7 (0.8-3.0); POTASSIUM 2.7 mmol/L (3.4-5.0); PROTHROMBIN TIME 19.2 SECONDS (9.7-12.8)
[2017-01-28 13:09] LABS: PARTIAL THROMBOPLASTIN TIME 31.9 SECONDS (26.0-37.0)
[2017-01-28 13:16] LABS: TROPONIN-I 0.043 ng/mL (0.000-0.034)
[2017-01-28 14:24] VITALS: BP 118/60; PULSE 76; TEMP 97.9
[2017-01-28 14:30] VITALS: BP 110/59; BP 119/69; PULSE 75; PULSE 77
[2017-01-28] MEDS ORDERED: ZAROXOLYN 2.52.5 MG PO (16:44)
[2017-01-28] MEDS ORDERED: K-DUR20 MEQ PO (16:45)
[2017-01-28 17:11] VITALS: BP 122/61; PULSE 80; TEMP 97.9
[2017-01-28 20:00] VITALS: BP 100/44; PULSE 76; TEMP 98.3
[2017-01-29] VITALS: BP 120/62; PULSE 92; TEMP 98.4
[2017-01-29 04:00] VITALS: BP 128/65; PULSE 90; TEMP 98.4
[2017-01-29 07:29] LABS: CALCIUM 9.3 mg/dL (8.4-10.2); CREATININE, serum 1.5 mg/dL (0.66-1.25); POTASSIUM 3.6 mmol/L (3.4-5.0)
[2017-01-29 07:38] LABS: BASO # 0.1 (0.0-0.2); BASO % 0.8 % (0.0-2.0); EOS # 0.2 (0.0-0.7); EOS % 2.2 % (0-4.0); GRAN % 77.6 % (42.2-75.2); LYMPH # 0.6 (1.2-3.4); LYMPH % 8.1 % (20.0-51.0); MEAN CELL VOLUME 100 fl (80.0-100.0); MEAN CORPUSCULAR HGB CONC 32 g/dl (33.0-37.0); MEAN PLATELET VOLUME 9.7 fl (7.4-10.4); MONO # 0.8 (0.1-0.6); MONO % 10.7 % (1.7-9.3); PLATELET COUNT 189 K/mm3 (130-400); RED BLOOD COUNT 3.19 M/mm3 (4.20-5.60); REDCELL DISTRIBUTION WIDTH-CV 18.1 % (11.5-14.5); WHITE BLOOD COUNT 7.8 K/mm3 (4.8-10.8)
[2017-01-29 07:42] LABS: HEMOGLOBIN 10.1 g/dl (13.5-18.0); MEAN CORPUSCULAR HEMOGLOBIN 32 pg (27.0-31.0)
[2017-01-29 10:12] VITALS: BP 119/57; PULSE 81; TEMP 97.9
[2017-01-29 13:18] VITALS: BP 98/51; PULSE 75; TEMP 98.1
[2017-01-29] MEDS ORDERED: K-DUR20 MEQ PO (13:45)
== END 2017-01-29 14:14 | disposition home health service (06) ==
LOC: COL.ER 11:58 → SURG 13:28
PROVIDERS: Emergency Medicine; Family Medicine
DX: I47.2 Ventricular tachycardia (principal); E87.6 Hypokalemia; I25.10 Atherosclerotic heart disease of native coronary artery without angina pectoris; I08.0 Rheumatic disorders of both mitral and aortic valves; I82.409 Acute embolism and thrombosis of unspecified deep veins of unspecified lower extremity; I13.0 Hypertensive heart and chronic kidney disease with heart failure and stage 1 through stage 4 chronic kidney disease, or unspecified chronic kidney disease; N18.9 Chronic kidney disease, unspecified; I50.9 Heart failure, unspecified; I25.2 Old myocardial infarction; I48.0 Paroxysmal atrial fibrillation; E78.5 Hyperlipidemia, unspecified; K21.9 Gastro-esophageal reflux disease without esophagitis; Z90.49 Acquired absence of other specified parts of digestive tract; Z79.01 Long term (current) use of anticoagulants; Z95.1 Presence of aortocoronary bypass graft; Z95.810 Presence of automatic (implantable) cardiac defibrillator; Z85.038 Personal history of other malignant neoplasm of large intestine; Z83.3 Family history of diabetes mellitus; Z82.49 Family history of ischemic heart disease and other diseases of the circulatory system
CPT/HCPCS: G0378; J2405; J3480

== ENCOUNTER → 2017-02-09 | Outpatient (CLI) | payer MEDICARE, OTHER | LOC: COL.RAD 10:11 | DX: R14.2 Eructation (principal); R05 Cough; R09.89 Other specified symptoms and signs involving the circulatory and respiratory systems ==

== ENCOUNTER 2017-02-16 09:20 | Inpatient (IN) | payer MEDICARE, OTHER ==
[2017-02-16] VITALS (510 sets, daily range): BP systolic 106–118; BP diastolic 56–78; PULSE 70–84; TEMP 97.1–98.2; O2SAT 87–100
[~2017-02-16] VITALS: Ht 175.3 cm; Wt 77.9 kg
[2017-02-16] MEDS ORDERED: K-DUR20 MEQ PO (09:43)
[2017-02-16 10:28] LABS: BASO % 0.4 % (0.0-2.0); EOS # 0.1 (0.0-0.7); EOS % 1.4 % (0-4.0); GRAN # 6.4 (1.4-6.5); GRAN % 79.4 % (42.2-75.2); LYMPH # 0.5 (1.2-3.4); LYMPH % 5.8 % (20.0-51.0); MEAN CELL VOLUME 98 fl (80.0-100.0); MEAN CORPUSCULAR HGB CONC 32 g/dl (33.0-37.0); MEAN PLATELET VOLUME 9.5 fl (7.4-10.4); MONO % 12.2 % (1.7-9.3); PLATELET COUNT 180 K/mm3 (130-400); REDCELL DISTRIBUTION WIDTH-CV 18.2 % (11.5-14.5)
[2017-02-16 10:29] LABS: HEMATOCRIT 28.4 % (42.0-52.0); MEAN CORPUSCULAR HEMOGLOBIN 31 pg (27.0-31.0)
[2017-02-16 10:34] LABS: INR 2.3 (0.8-3.0); PROTHROMBIN TIME 26.8 SECONDS (9.7-12.8)
[2017-02-16 10:36] LABS: PARTIAL THROMBOPLASTIN TIME 33.7 SECONDS (26.0-37.0)
[2017-02-16 10:43] LABS: ADJUSTED CALCIUM 8.9 mg/dL (8.4-10.2); ALBUMIN 3.9 gm/dL (3.5-5.0); BILIRUBIN,TOTAL 1.4 mg/dL (0.0-1.0); CALCIUM 8.8 mg/dL (8.4-10.2); CREATININE, serum 1.97 mg/dL (0.66-1.25); POTASSIUM 3.5 mmol/L (3.4-5.0); TOTAL PROTEIN 8.4 gm/dL (6.4-8.2)
[2017-02-16 10:57] LABS: TROPONIN-I 0.066 ng/mL (0.000-0.034)
[2017-02-17] VITALS (9 sets, daily range): BP systolic 103–117; BP diastolic 55–74; PULSE 77–86; TEMP 97–98.8; O2SAT 98–99
[2017-02-17 05:49] LABS: CALCIUM 9.3 mg/dL (8.4-10.2); CREATININE, serum 2.31 mg/dL (0.66-1.25); MAGNESIUM 2.1 mg/dL (1.6-2.3); POTASSIUM 4.1 mmol/L (3.4-5.0)
[2017-02-17 16:46] LABS: CALCIUM 9.5 mg/dL (8.4-10.2); CREATININE, serum 2.52 mg/dL (0.66-1.25); POTASSIUM 4.7 mmol/L (3.4-5.0)
[2017-02-18 03:53] VITALS: BP 121/62; PULSE 80; TEMP 97.7
[2017-02-18 06:52] LABS: CALCIUM 8.8 mg/dL (8.4-10.2); CREATININE, serum 2.59 mg/dL (0.66-1.25); MAGNESIUM 2.1 mg/dL (1.6-2.3); POTASSIUM 4.2 mmol/L (3.4-5.0)
[2017-02-18 07:54] VITALS: BP 113/54; PULSE 83; TEMP 98.3
[2017-02-18 11:12] VITALS: BP 96/50; PULSE 74; TEMP 97.4
[2017-02-18 15:34] VITALS: BP 111/58; PULSE 74; TEMP 97.8
[2017-02-18 16:52] LABS: CREATININE, serum 2.59 mg/dL (0.66-1.25); POTASSIUM 4.9 mmol/L (3.4-5.0)
[2017-02-18 19:30] VITALS: BP 120/55; PULSE 80; TEMP 98
[2017-02-18 23:36] VITALS: BP 116/54; PULSE 86; TEMP 97.1
[2017-02-19 03:36] VITALS: BP 121/55; PULSE 84; TEMP 98.4
[2017-02-19 06:45] LABS: CALCIUM 9.2 mg/dL (8.4-10.2); CREATININE, serum 2.66 mg/dL (0.66-1.25); MAGNESIUM 2.2 mg/dL (1.6-2.3); POTASSIUM 3.6 mmol/L (3.4-5.0)
[2017-02-19 07:55] VITALS: BP 113/48; PULSE 80; TEMP 97.2
[2017-02-19 11:11] VITALS: BP 128/41; PULSE 79; TEMP 97.2
[2017-02-19 15:29] LABS: CALCIUM 9.3 mg/dL (8.4-10.2); CREATININE, serum 2.66 mg/dL (0.66-1.25); MAGNESIUM 2.2 mg/dL (1.6-2.3); POTASSIUM 3.9 mmol/L (3.4-5.0)
[2017-02-19 15:37] VITALS: BP 134/46; PULSE 76; TEMP 97.9
[2017-02-19 21:39] VITALS: BP 127/65; PULSE 79; TEMP 97.9
[2017-02-20] VITALS: BP 113/62; PULSE 79; TEMP 97.9
[2017-02-20 04:17] VITALS: BP 124/62; PULSE 77; TEMP 97.8
[2017-02-20 07:02] LABS: BASO % 0.4 % (0.0-2.0); EOS # 0.1 (0.0-0.7); EOS % 1.5 % (0-4.0); GRAN # 6.2 (1.4-6.5); GRAN % 78.6 % (42.2-75.2); LYMPH # 0.6 (1.2-3.4); LYMPH % 7.2 % (20.0-51.0); MEAN CELL VOLUME 97 fl (80.0-100.0); MEAN CORPUSCULAR HGB CONC 31 g/dl (33.0-37.0); MEAN PLATELET VOLUME 9.3 fl (7.4-10.4); MONO # 0.9 (0.1-0.6); MONO % 11.8 % (1.7-9.3); PLATELET COUNT 184 K/mm3 (130-400); RED BLOOD COUNT 2.92 M/mm3 (4.20-5.60); REDCELL DISTRIBUTION WIDTH-CV 18.4 % (11.5-14.5); WHITE BLOOD COUNT 7.9 K/mm3 (4.8-10.8)
[2017-02-20 07:03] LABS: HEMATOCRIT 28.3 % (42.0-52.0); HEMOGLOBIN 8.9 g/dl (13.5-18.0); MEAN CORPUSCULAR HEMOGLOBIN 30 pg (27.0-31.0)
[2017-02-20 07:10] LABS: CALCIUM 9.2 mg/dL (8.4-10.2); CREATININE, serum 2.69 mg/dL (0.66-1.25); MAGNESIUM 2.3 mg/dL (1.6-2.3); POTASSIUM 3.1 mmol/L (3.4-5.0)
[2017-02-20 07:57] VITALS: BP 114/41; PULSE 80; TEMP 98.4
[2017-02-20 11:48] VITALS: BP 104/48; PULSE 75; TEMP 98.6
[2017-02-20 15:36] VITALS: BP 135/45; PULSE 76; TEMP 98.2
[2017-02-20 19:58] VITALS: BP 125/50; PULSE 75; TEMP 97.6
[2017-02-21 00:31] VITALS: BP 115/52; PULSE 75; TEMP 97.5
[2017-02-21 04:30] VITALS: BP 109/55; PULSE 74; TEMP 97.4
[2017-02-21 07:50] VITALS: BP 128/58; PULSE 73; TEMP 98
[2017-02-21 08:07] LABS: BLOOD UREA NITROGEN 73 mg/dL (9-20); CALCIUM 9.2 mg/dL (8.4-10.2); CREATININE, serum 2.69 mg/dL (0.66-1.25); GLUCOSE 111 mg/dL (74-106); MAGNESIUM 2.3 mg/dL (1.6-2.3); SODIUM 128 mmol/L (137-145)
[2017-02-21 08:12] LABS: B-TYPE NATRIURETIC PEPTIDE 9580 pg/mL (0-125)
[2017-02-21 08:14] LABS: CARBON DIOXIDE 38 mmol/L (22-30)
[2017-02-21 08:18] LABS: CHLORIDE 76 mmol/L (98-107); POTASSIUM 2.9 mmol/L (3.4-5.0)
[2017-02-21 11:45] VITALS: BP 132/50; PULSE 75; TEMP 97.1
[2017-02-21 15:49] VITALS: BP 120/43; PULSE 75; TEMP 97.5; TEMP 98.2
[2017-02-21 22:25] VITALS: BP 114/50; PULSE 78; TEMP 97.4
[2017-02-22 01:36] VITALS: BP 112/54; PULSE 77; TEMP 98.2
[2017-02-22 05:06] VITALS: BP 115/55; PULSE 76; TEMP 97.8
[2017-02-22 06:59] LABS: CALCIUM 9.4 mg/dL (8.4-10.2); CREATININE, serum 2.76 mg/dL (0.66-1.25); MAGNESIUM 2.2 mg/dL (1.6-2.3)
[2017-02-22 08:27] VITALS: BP 111/54; BP 155/110; PULSE 84; TEMP 97.3
[2017-02-22 11:44] VITALS: BP 102/53; PULSE 77; TEMP 97.9
[2017-02-22 15:39] VITALS: BP 80/26; PULSE 75; TEMP 97.1
[2017-02-22 20:14] VITALS: BP 122/91; PULSE 75; TEMP 98
[2017-02-23] VITALS (783 sets, daily range): BP systolic 48–126; BP diastolic 26–95; PULSE 74–93; TEMP 36.8–37; O2SAT 57–100
[2017-02-23 04:40] LABS: BASO % 0.2 % (0.0-2.0); EOS % 0.2 % (0-4.0); GRAN # 14.1 (1.4-6.5); GRAN % 87.8 % (42.2-75.2); HEMOGLOBIN 9.6 g/dl (13.5-18.0); LYMPH # 0.5 (1.2-3.4); LYMPH % 3.1 % (20.0-51.0); MEAN CELL VOLUME 94 fl (80.0-100.0); MEAN CORPUSCULAR HEMOGLOBIN 30 pg (27.0-31.0); MEAN CORPUSCULAR HGB CONC 32 g/dl (33.0-37.0); MEAN PLATELET VOLUME 8.9 fl (7.4-10.4); MONO # 1.3 (0.1-0.6); MONO % 8.1 % (1.7-9.3); PLATELET COUNT 187 K/mm3 (130-400); RED BLOOD COUNT 3.19 M/mm3 (4.20-5.60); REDCELL DISTRIBUTION WIDTH-CV 18.1 % (11.5-14.5)
[2017-02-23 04:48] LABS: CALCIUM 8.9 mg/dL (8.4-10.2); MAGNESIUM 2.4 mg/dL (1.6-2.3); POTASSIUM 3.8 mmol/L (3.4-5.0)
[2017-02-23 04:50] LABS: CREATININE, serum 4.52 mg/dL (0.66-1.25)
[2017-02-23 18:48] LABS: PH 6 (5-8); SQUAMOUS EPITHELIAL None Seen /hpf; URINE APPEARANCE Cloudy; URINE BACTERIA None Seen /hpf; URINE BILIRUBIN Negative (NEGATIVE); URINE BLOOD 3+ (NEGATIVE); URINE COLOR Red; URINE GLUCOSE Negative (NEGATIVE); URINE KETONE Negative (NEGATIVE); URINE RBC >50 /hpf; URINE UROBILINOGEN Negative (NEGATIVE); URINE WBC >50 /hpf
[2017-02-24] VITALS (1337 sets, daily range): BP systolic 88–118; BP diastolic 40–66; PULSE 77–102; TEMP 97.1–99.3; O2SAT 67–100
[2017-02-24 06:06] LABS: MEAN CELL VOLUME 97 fl (80.0-100.0); MEAN CORPUSCULAR HGB CONC 31 g/dl (33.0-37.0); MEAN PLATELET VOLUME 9.7 fl (7.4-10.4); PLATELET COUNT 223 K/mm3 (130-400); RED BLOOD COUNT 3.22 M/mm3 (4.20-5.60); REDCELL DISTRIBUTION WIDTH-CV 17.9 % (11.5-14.5)
[2017-02-24 06:11] LABS: HEMATOCRIT 31.2 % (42.0-52.0); HEMOGLOBIN 9.7 g/dl (13.5-18.0); MEAN CORPUSCULAR HEMOGLOBIN 30 pg (27.0-31.0)
[2017-02-24 06:14] LABS: WHITE BLOOD COUNT 21.4 K/mm3 (4.8-10.8)
[2017-02-24 06:15] LABS: ADD PATHOLOGY DIFF REVIEW NO
[2017-02-24 06:24] LABS: ADJUSTED CALCIUM 9.4 mg/dL (8.4-10.2); ALBUMIN 3.6 gm/dL (3.5-5.0); CALCIUM 9.1 mg/dL (8.4-10.2); MAGNESIUM 2.5 mg/dL (1.6-2.3); POTASSIUM 3.7 mmol/L (3.4-5.0); TOTAL PROTEIN 8.1 gm/dL (6.4-8.2)
[2017-02-24 06:28] LABS: CREATININE, serum 3.96 mg/dL (0.66-1.25)
[2017-02-24 06:30] LABS: ANISOCYTOSIS 1+; BAND 16 % (0-10); NEUTROPHILS 77 % (42.0-75.2); PLATELET ESTIMATE NORMAL (NORMAL); TOTAL CELLS COUNTED 100
[2017-02-25] VITALS (1435 sets, daily range): BP systolic 77–120; BP diastolic 40–66; PULSE 74–107; TEMP 96.7–98.6; O2SAT 57–100
[2017-02-25 06:04] LABS: ADD PATHOLOGY DIFF REVIEW NO
[2017-02-25 06:08] LABS: MEAN CELL VOLUME 93 fl (80.0-100.0); MEAN CORPUSCULAR HGB CONC 33 g/dl (33.0-37.0); MEAN PLATELET VOLUME 9.8 fl (7.4-10.4); PLATELET COUNT 258 K/mm3 (130-400); RED BLOOD COUNT 3.47 M/mm3 (4.20-5.60); WHITE BLOOD COUNT 15.8 K/mm3 (4.8-10.8)
[2017-02-25 06:10] LABS: HEMATOCRIT 32.1 % (42.0-52.0); HEMOGLOBIN 10.6 g/dl (13.5-18.0); MEAN CORPUSCULAR HEMOGLOBIN 31 pg (27.0-31.0)
[2017-02-25 06:24] LABS: CALCIUM 8.7 mg/dL (8.4-10.2); CREATININE, serum 2.92 mg/dL (0.66-1.25)
[2017-02-25 06:33] LABS: BAND 12 % (0-10); METAMYELOCYTE 2 % (0-0); NEUTROPHILS 83 % (42.0-75.2); PLATELET ESTIMATE NORMAL (NORMAL); TOTAL CELLS COUNTED 100
[2017-02-25 06:34] LABS: ANISOCYTOSIS 1+; OVALOCYTES 1+
[2017-02-26] VITALS (724 sets, daily range): BP systolic 96–115; BP diastolic 52–90; PULSE 80–103; TEMP 98–98.7; O2SAT 78–100
[2017-02-26 05:05] LABS: BASO % 0.2 % (0.0-2.0); EOS % 0.4 % (0-4.0); GRAN # 8.9 (1.4-6.5); GRAN % 84.3 % (42.2-75.2); LYMPH # 0.4 (1.2-3.4); LYMPH % 4.2 % (20.0-51.0); MEAN CELL VOLUME 96 fl (80.0-100.0); MEAN CORPUSCULAR HGB CONC 32 g/dl (33.0-37.0); MEAN PLATELET VOLUME 9.6 fl (7.4-10.4); MONO # 1.1 (0.1-0.6); MONO % 10.1 % (1.7-9.3); PLATELET COUNT 229 K/mm3 (130-400); REDCELL DISTRIBUTION WIDTH-CV 18.3 % (11.5-14.5); WHITE BLOOD COUNT 10.6 K/mm3 (4.8-10.8)
[2017-02-26 05:11] LABS: HEMATOCRIT 29.8 % (42.0-52.0); HEMOGLOBIN 9.5 g/dl (13.5-18.0); MEAN CORPUSCULAR HEMOGLOBIN 31 pg (27.0-31.0)
[2017-02-26 05:17] LABS: CALCIUM 8.7 mg/dL (8.4-10.2); CREATININE, serum 2.46 mg/dL (0.66-1.25); POTASSIUM 3.3 mmol/L (3.4-5.0)
== END 2017-02-26 12:20 | DRG 291 ==
LOC: COL.ER 09:20 → ICU 11:20 → MEDICAL 02-17 12:43 → ICU 02-23 08:05
PROVIDERS: Emergency Medicine; Family Medicine; Internal Medicine; Nurse Practitioner Family; Physician Assistant
PROC: 02HV33Z Insertion of Infusion Device into Superior Vena Cava, Percutaneous Approach (ICD-10-PCS; principal; 2017-02-18)
DX: I13.0 Hypertensive heart and chronic kidney disease with heart failure and stage 1 through stage 4 chronic kidney disease, or unspecified chronic kidney disease (principal); I50.23 Acute on chronic systolic (congestive) heart failure; R57.1 Hypovolemic shock; R57.0 Cardiogenic shock; N17.9 Acute kidney failure, unspecified; N39.0 Urinary tract infection, site not specified; E87.1 Hypo-osmolality and hyponatremia; E87.3 Alkalosis; N18.3 Chronic kidney disease, stage 3 (moderate); I25.5 Ischemic cardiomyopathy; E87.6 Hypokalemia; I25.10 Atherosclerotic heart disease of native coronary artery without angina pectoris; I48.2 Chronic atrial fibrillation; B96.20 Unspecified Escherichia coli [E. coli] as the cause of diseases classified elsewhere; Z95.1 Presence of aortocoronary bypass graft; Z85.038 Personal history of other malignant neoplasm of large intestine; Z95.5 Presence of coronary angioplasty implant and graft; Z95.810 Presence of automatic (implantable) cardiac defibrillator; I87.2 Venous insufficiency (chronic) (peripheral)
CPT/HCPCS: 99223-AI; 99232-AI; 99233-AI; 99239; C1751; J0696; J0881; J1265; J1644; J1940; J2916; J3480; J7040; J7050